=== PATIENT | female | born 1935 | race Caucasian/White ===

== ENCOUNTER → 2016-06-20 | Outpatient (CLI) | payer SELFPAY | END | disposition home or self-care (01) | LOC: CDC 08:25 | DX: Z01.810 Encounter for preprocedural cardiovascular examination (principal); C32.0 Malignant neoplasm of glottis | CPT/HCPCS: 93000 ==

== ENCOUNTER → 2017-02-13 | Outpatient (CLI) | payer SELFPAY | END | disposition home or self-care (01) | LOC: CDC 08:30 | DX: Z01.810 Encounter for preprocedural cardiovascular examination (principal); J38.3 Other diseases of vocal cords; R94.31 Abnormal electrocardiogram [ECG] [EKG] | CPT/HCPCS: 93000 ==